=== PATIENT | male | born 1970 | race Asian ===

== ENCOUNTER 2022-02-16 07:44 | Emergency (ER) | payer OTHER, MEDICAID ==
[~2022-02-16] VITALS: Ht 170.2 cm; Wt 70.5 kg
[2022-02-16] MEDS ORDERED: UNK HTN MED PO (08:02)
[2022-02-16] MEDS ORDERED: ATOR10TA84 PO (08:02)
[2022-02-16 08:03] VITALS: BP 156/94
[2022-02-16 08:37] LABS: COVID AG,FIA SOURCE NASOPHARYNGEAL
[2022-02-16 08:57] LABS: INFLUENZA TYPE A NEGATIVE FOR TYPE A (NEGATIVE); INFLUENZA TYPE B NEGATIVE FOR TYPE B (NEGATIVE)
== END 2022-02-16 12:00 | disposition left against medical advice (07) ==
LOC: EMS 07:44
DX: R50.9 Fever, unspecified (principal); Z20.822 Contact with and (suspected) exposure to COVID-19; Z53.21 Procedure and treatment not carried out due to patient leaving prior to being seen by health care provider
CPT/HCPCS: 87804

== ENCOUNTER 2022-02-18 10:43 | Emergency (ER) | payer OTHER, MEDICAID ==
[~2022-02-18] VITALS: Ht 170.2 cm; Wt 68.2 kg
[~2022-02-18 10:43] MED LIST: ATOR10TA84 PO; UNK HTN MED PO
[2022-02-18] MEDS ORDERED: SIMV-260 PO (10:52)
[2022-02-18 12:08] LABS: COVID AG,FIA SOURCE NASOPHARYNGEAL
[2022-02-18] MEDS ORDERED: BENZ-70 PO (13:28)
[2022-02-18 13:47] VITALS: BP 136/91
== END 2022-02-18 13:48 | disposition home or self-care (01) ==
LOC: EMS 10:43
DX: M79.18 Myalgia, other site (principal); I10 Essential (primary) hypertension; E78.00 Pure hypercholesterolemia, unspecified; Z20.822 Contact with and (suspected) exposure to COVID-19
CPT/HCPCS: 99283

== ENCOUNTER 2023-08-07 06:19 | Emergency (ER) | payer MEDICAID, OTHER ==
[~2023-08-07] VITALS: Ht 170.2 cm; Wt 63.6 kg
[~2023-08-07 06:19] MED LIST changes: +ATOR10TA PO; -ATOR10TA84 PO; +BENZ-227 PO; +SIMV-260 PO
[2023-08-07 06:34] VITALS: TEMP 98.3
[2023-08-07] MEDS ORDERED: ATOR-2 PO (06:38)
[2023-08-07] MEDS ORDERED: AMLO2.5T29 PO (06:38)
[2023-08-07] MEDS ORDERED: IBUPROFEN 600 MG TABLET PO ONE (06:45)
[2023-08-07] MEDS ORDERED: ACETAMINOPHEN 500 MG TABLET PO ONE (06:45)
[2023-08-07 07:02] LABS: BASOPHILS % (AUTO) 0.2 % (0.0-2.0); EOSINOPHILS % (AUTO) 1.1 % (1.0-6.0); HEMATOCRIT 41.7 % (41-53); HEMOGLOBIN 13.9 g/dL (13.5-17.5); LYMPHOCYTES # (AUTO) 0.7 K/uL (1.0-4.8); LYMPHOCYTES % (AUTO) 6.8 % (22.0-44.0); MEAN CORPUSCULAR HEMOGLOBIN 30.4 pg (26.0-34.0); MEAN CORPUSCULAR HGB CONC 33.4 G/dL (31.0-37.0); MEAN CORPUSCULAR VOLUME 91 fL (80-100); MONOCYTES # (AUTO) 0.5 K/uL (0.1-1.0); MONOCYTES % (AUTO) 5.1 % (2.0-9.0); NEUTROPHILS # (AUTO) 8.7 K/uL (1.8-7.7); PLATELET COUNT (AUTO) 294 K/uL (150-450); RED BLOOD CELL COUNT(AUTO) 4.58 MIL/uL (4.50-5.90); RED CELL DISTRIBUTION WIDTH 14.1 % (11.5-14.5)
[2023-08-07 07:06] LABS: NEUTROPHILS % (AUTO) 86.8 % (40.0-70.0)
[2023-08-07 07:07] LABS: RBC MORPHOLOGY COMMENT NORMAL RBC MORPH
[2023-08-07 07:19] LABS: ANION GAP 6 mmol/L (8-16); CALCIUM, TOTAL 8.9 mg/dL (8.8-10.5); CARBON DIOXIDE 30 mmol/L (22-29); CHLORIDE 105 mmol/L (98-107); CREATININE 1.03 mg/dL (0.60-1.30); GLOMERULAR FILTR. RATE CALC > 60 mL/min (>60); GLUCOSE,RANDOM 116 mg/dL (70-110); SODIUM SERUM 141 mmol/L (136-145); UREA NITROGEN, BLOOD 16 mg/dL (7-18)
[2023-08-07 07:24] LABS: ALANINE AMINOTRANSFERASE 102 U/L (12-78); ALKALINE PHOSPHATASE 156 U/L (46-116); ASPARTATE AMINOTRANSFERASE 74 U/L (15-37); BILIRUBIN,TOTAL 0.6 mg/dL (0.1-1.0); TOTAL PROTEIN, SERUM 7.6 g/dL (6.4-8.2)
[2023-08-07 08:19] LABS: APPEARANCE,URINE CLEAR (CLEAR); BILIRUBIN,URINE NEGATIVE (NEGATIVE); COLOR,URINE LIGHT YELLOW (YELLOW); GLUCOSE, URINE (UA) NEGATIVE (NEGATIVE); LEUKOCYTE ESTERASE ,URINE NEGATIVE (NEGATIVE); NITRATE,URINE NEGATIVE (NEGATIVE); OCCULT BLOOD,URINE NEGATIVE (NEGATIVE); PH,URINE 6.5 (5.0-8.0); PROTEIN,URINE NEGATIVE (NEGATIVE); SPECIFIC GRAVITIY, URINE 1.022 (1.003-1.030); UROBILINOGEN,URINE <=1.0 mg/dL (<=1.0)
[2023-08-07] MEDS ORDERED: IBUP-1492 PO (08:33)
[2023-08-07 08:39] VITALS: BP 142/91; PULSE 62; RESP 18
== END 2023-08-07 08:41 | disposition home or self-care (01) ==
LOC: EMS 06:20
DX: N20.0 Calculus of kidney (principal); E78.00 Pure hypercholesterolemia, unspecified; I10 Essential (primary) hypertension; Z87.891 Personal history of nicotine dependence
CPT/HCPCS: 74176; 80053; 81003; 85025; 99284